=== PATIENT | male | born 1945 | race Caucasian/White ===

== ENCOUNTER 2019-06-14 05:53 | Inpatient (IN) | payer MEDICARE ==
--- NOTE | 2019-06-02 09:11 | HP ---
HISTORY AND PHYSICAL: DATE OF ADMISSION/SURGERY: 06/14/19 DATE OF OFFICE VISIT: 06/01/19 SURGEON: Ashley Caballero MD * (DICTATED BY MERE BRIDGES) PROCEDURE: Right total knee arthroplasty. CHIEF COMPLAINT: Right knee pain. HISTORY OF PRESENT ILLNESS: Mr. Pineda is a 73-year-old gentleman with end- stage osteoarthritis of his right knee. He has failed conservative treatment and elected to proceed with a right total knee arthroplasty. PAST MEDICAL HISTORY: Hypertension, high cholesterol, GERD, history of prostate cancer, and glaucoma. PAST SURGICAL HISTORY: Prostatectomy, right eye surgery, and tonsillectomy. CURRENT MEDICATIONS: 1. Amlodipine/benazepril 5/20 mg daily. 2. Atorvastatin calcium 40 mg a day. 3. Aspirin 325 daily. 4. Calcium carbonate 500 mg daily. 5. Loratadine 10 mg a day. 6. Latanoprost eye drops daily. ALLERGIES: To SULFA, CETIRIZINE. FAMILY HISTORY: Coronary artery disease, stroke, and cancer. SOCIAL HISTORY: He is a 73-year-old gentleman. He lives with his . He does not smoke or use drugs. He drinks 1 to 2 beers a day. REVIEW OF SYSTEMS: A complete 14-point review of systems was reviewed with the patient and is positive for GERD. He denies history of DVT, PE, hepatitis, HIV , or anesthesia problems. PHYSICAL EXAMINATION GENERAL: He is well developed, well nourished, in no acute distress. VITAL SIGNS: He stands 67 inches tall, weighs 173 pounds. His blood pressure is 148/84, his heart rate is 64. HEENT: Normocephalic, atraumatic. NECK: Supple. No palpable lymph nodes. PULMONARY: The lungs are clear to auscultation bilaterally. CARDIO: Regular rate and rhythm. Strong S1 and S2. ABDOMEN: Soft, nontender, nondistended. NEUROLOGICAL: He is alert and oriented x3. MUSCULOSKELETAL: Right lower extremity: The skin is intact. There are no open wounds or abrasions. There is a moderate effusion of the right knee joint. He has some tenderness over the medial and lateral joint line. Range of motion is 5 to 130 degrees of flexion with significant patellofemoral crepitus. He has a 2+ dorsalis pedis pulse. He is able to dorsiflex and plantar flex. He has intact sensation. ASSESSMENT AND PLAN: Mr. Pineda is a 73-year-old gentleman with end-stage osteoarthritis of the right knee. He has failed conservative treatment and elected to proceed with a right total knee arthroplasty. The surgery is scheduled for 06/14/[address] Caballero discussed the risks and benefits of the surgery at today's visit and all of his questions were answered. He will follow up with Dr. Caballero 2 weeks after the surgery. MERE BRIDGES [id number]/[facility] #: [id number] MTDLaurie
[~2019-06-14 05:53] MED LIST: Buffered Lidocaine 1% SYRIN* 1 ML/SYRINGE INTRADERM ONE; Tranexamic Acid 1,000 MG in NS 0.9% 50 ML* (outpatient use) IV SCH
[2019-06-14] MEDS ORDERED: celeCOXIB CAP* 100 MG PO ONE (06:00)
[2019-06-14] MEDS ORDERED: Lactated Ringers 1000 ML Bag* 1,000 ML IV SCH (06:00)
[2019-06-14] MEDS ORDERED: Dexamethasone IV* 4 MG/ML 1 ML (4 MG) IV SLOW PU ONE (06:00)
[2019-06-14] MEDS ORDERED: Famotidine IV* 10 MG/ML 2 ML (20 mg) IV ONE (06:00)
[2019-06-14] MEDS ORDERED: Gabapentin CAP(*) 400 MG PO ONE ×2 (06:00→06:55)
[2019-06-14] MEDS ORDERED: Buffered Lidocaine 1% SYRIN* 1 ML/SYRINGE INTRADERM ONE (06:55)
[2019-06-14] MEDS ORDERED: ceFAZolin 2 GM in NS PREMIX(*) 2 GM/100 ML BAG IVPB ONE (06:55)
[2019-06-14] MEDS ORDERED: Dexamethasone IV* 4 MG/ML 1 ML (4 MG) ONE (06:55)
[2019-06-14] MEDS ORDERED: celeCOXIB CAP* 200 MG ONE (06:55)
[2019-06-14] MEDS ORDERED: Famotidine IV* 10 MG/ML 2 ML (20 mg) ONE (06:55)
[2019-06-14] MEDS ORDERED: ROPIVACAINE 5 MG/ML 30 ML BTL (0.5%) ONE ×3 (06:57→08:57)
[2019-06-14] MEDS ORDERED: Midazolam* 1 MG/ML 2 ML VIAL (2 MG) ONE (07:11)
[2019-06-14] MEDS ORDERED: fentaNYL* 50 MCG/ML 2 ML VIAL (100 MCG VIAL) ONE (07:11)
[2019-06-14] MEDS ORDERED: Lidocaine 2% PF * 5 ML VIAL ONE (07:11)
[2019-06-14] MEDS ORDERED: KETAMINE HCL* 50 MG/ML 10 ML VIAL ONE (08:24)
[2019-06-14] MEDS ORDERED: Midazolam* 1 MG/ML 5 ML VIAL (5 MG) ONE (08:24)
[2019-06-14] MEDS ORDERED: Ondansetron INJ* 2 MG/ML VIAL ONE (08:25)
[2019-06-14] MEDS ORDERED: Propofol* 10 MG/ML 20 ML BTL ONE (08:25)
[2019-06-14] MEDS ORDERED: Bupivacaine 0.5% SDV PF* 30ML VIAL ONE (08:25)
[2019-06-14] MEDS ORDERED: Bupivacaine 0.5%* 50 ML MDV VIAL ONE (09:24)
[2019-06-14] MEDS ORDERED: Cyclobenzaprine TAB* 10 MG PO PRN (14:10)
[2019-06-14] MEDS ORDERED: oxyCODONE/Acetamin 5/325 MG* TAB PO PRN (14:10)
[2019-06-14] MEDS ORDERED: diPHENhydraMINE PO* 25 MG PO PRN (14:10)
[2019-06-14] MEDS ORDERED: oxyCODONE TAB* 5 MG TAB PO PRN (14:10)
[2019-06-14] MEDS ORDERED: diPHENhydraMINE IV* 50 MG/ML 1 ml VIAL (BENADRYL) IV PRN (14:10)
[2019-06-14] MEDS ORDERED: Ondansetron INJ* 2 MG/ML VIAL IV PRN (14:10)
[2019-06-14] MEDS ORDERED: Ondansetron ODT TAB* 4 MG PO PRN (14:10)
[2019-06-14] MEDS ORDERED: Acetaminophen TAB* 325 MG PO PRN (14:10)
[2019-06-14] MEDS ORDERED: Morphine INJ* 2 MG/ML 1 ML SYRINGE (TWO MG - NEW SYRINGE VERSION) IV PRN (14:10)
[2019-06-14] MEDS ORDERED: Magnesium Hydroxide LIQ* 30 ML UDC PO PRN (14:10)
[2019-06-14] MEDS ORDERED: ceFAZolin 1 GM ADVAN(*) 1 GM in NS 0.9% 50 ML* 50 ML IVPB SCH (15:00)
[2019-06-14] MEDS: Lactated Ringers 1000 ML Bag* 1,000 ML IV SCH (15:54)
--- OUTSIDE RECORDS SUMMARY | 2019-06-14 16:38 | XMS REPORT | Continuity of Care Document ---
:1945 External Reference #:[id number] Author Name Ashley Caballero M.D. 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 Medicine Problems Description No Information Available Social History Type Date Description Comments Sex Unknown ETOH Use Currently consumes alcohol 10 drinks/week Tobacco Use Start: Unknown Patient has never smoked Smoking Status Reviewed: 06/01/19 Patient has never smoked Exercise Type/Frequency Exercises regularly Allergies, Adverse Reactions, Alerts Active Allergies Reaction Severity Comments Date Sulfa Antibiotics 01/03/2019 Cetirizine 01/03/2019 Medications Active Medications SIG Qnty Indications Ordering Provider Date Amlodipine Take 1 Capsule By Unknown Besylate/Benazepril Oral Route Every Hydrochloride Day 5-20mg Capsules Atorvastatin Calcium Take 1 Tablet By Unknown 40mg Oral Route Every Tablets Day Aspirin one daily Unknown 325mg Tablets Calcium Carbonate 500 mg once daily Unknown Loratadine once daily Unknown 10mg Capsules Vitamin D one daily Unknown 1000Unit Tablets Famotidine 1 at bedtime prn Unknown 20mg Tablets Latanoprost Instill 1 Drop Unknown 0.005% Solution Into Both Eyes Nightly Immunizations Description No Information Available Vital Signs Date Vital Result Comment 06/01/2019 8:36am Height 67.75 inches 5'7.75" Weight 173.00 lb Heart Rate 63 /min BP Systolic Sitting 148 mmHg BP Diastolic Sitting 84 mmHg Respiratory Rate 16 /min Pain Level 1 O2 % BldC Oximetry 96 % BMI (Body Mass Index) 26.5 kg/m2 05/30/2019 10:28am Height 67.75 inches 5'7.75" Weight 175.00 lb Heart Rate 69 /min BP Systolic Sitting 146 mmHg 160/84 initially BP Diastolic Sitting 84 mmHg 160/84 initially O2 % BldC Oximetry 95 % BMI (Body Mass Index) 26.8 kg/m2 Results Description No Information Available Procedures Date Code Description Status 05/30/2019 80144 EKG Tracing & Interpretation Completed Medical Devices Description No Information Available Encounters Type Date Location Provider Dx Diagnosis Office Visit 01/03/2019 [facility] Ashley Caballero, M25.561 Pain in right 11:00a at [place] knee M25.562 Pain in left knee M17.0 Bilateral primary osteoarthritis of knee Assessments Date Code Description Provider 06/01/2019 M25.561 Pain in right knee Ashley Caballero M.D. 06/01/2019 M17.0 Bilateral primary osteoarthritis of knee Ashley Caballero M.D. 05/30/2019 Z01.818 Encounter for other preprocedural James Nguyen M.D. examination 05/30/2019 M17.0 Bilateral primary osteoarthritis of knee James Nguyen M.D. 05/30/2019 I10 Essential (primary) hypertension James Nguyen M.D. 05/30/2019 E78.00 Pure hypercholesterolemia, unspecified James Nguyen M.D. 05/30/2019 K21.9 Gastro-esophageal reflux disease without James Nguyen M.D. esophagitis 05/30/2019 Z85.46 Personal history of malignant neoplasm of James Nguyen M.D. prostate 01/03/2019 M25.561 Pain in right knee Ashley Caballero M.D. 01/03/2019 M25.562 Pain in left knee Ashley Caballero M.D. 01/03/2019 M17.0 Bilateral primary osteoarthritis of knee Ashley Caballero M.D. Plan of Treatment Future Appointment(s):06/24/2019 8:45 am - Ashley Caballero M.D. at [facility] at Kibizh4011/28/2019 9:00 am - James Nguyen M.D. at [facility] - Ccmob06/14/2019 8:30 am - Ashley Caballero M.D. at [facility] at Tnaisc6210/17/2019 12:50 pm - Rory Farah MD at [facility] [id number] /20/2019 - Ashley Caballero M.D.M25.561 Pain in right kneeFollow up:Follow up: 2 weeks after tacqighR12.0 Bilateral primary osteoarthritis of knee Functional Status Description No Information Available Mental Status Description No Information Available Referrals Description No Information Available
--- OUTSIDE RECORDS SUMMARY | 2019-06-14 16:38 | XMS REPORT | Continuity of Care Document ---
:1945 External Reference #:[id number] Author Name James Nguyen M.D. 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 [phone] Medicine Problems Description No Information Available Social History Type Date Description Comments Sex Unknown ETOH Use Currently consumes alcohol 10 drinks/week Tobacco Use Start: Unknown Patient has never smoked Smoking Status Reviewed: 05/30/19 Patient has never smoked Exercise Type/Frequency Exercises [...] 1 at bedtime prn Unknown 20mg Tablets Immunizations Description No Information Available Vital Signs Date Vital Result Comment 05/30/2019 10:28am Height 67.75 inches 5'7.75" Weight 175.00 lb Heart Rate 69 /min BP Systolic Sitting 160 mmHg BP Diastolic Sitting 84 mmHg O2 % BldC Oximetry 95 % BMI (Body Mass Index) 26.8 kg/m2 01/03/2019 11:18am Height 67.75 inches 5'7.75" Weight 181.00 lb Heart Rate 72 /min BP Systolic 150 mmHg BP Diastolic 80 mmHg Body Temperature 97.9 F BMI (Body Mass Index) 27.7 kg/m2 Results Description No Information Available Procedures Date Code Description Status 05/30/2019 85687 EKG Tracing & Interpretation Completed Medical Devices Description No Information Available Encounters Type Date Location Provider Dx Diagnosis Office Visit 01/03/2019 [facility] Ashley Caballero, M25.561 Pain in right 11:00a at [place] M25.562 Pain in left knee M17.0 Bilateral primary osteoarthritis of knee Assessments Date Code Description Provider 05/30/2019 Z01.818 Encounter for other preprocedural James [...] Ashley Caballero M.D. Plan of Treatment Future Appointment(s):11/28/2019 9:00 am - James [facility]14[facility] 8:30 am - Ashley Caballero M.D. at [facility] at Sxdfvj0906/01/2019 9:00 am - Ashley Caballero M.D. at [facility] at Evnphx9810/17/2019 12:50 pm - Rory Farah MD at [facility] Mnizhuqxcek65 /18/2019 - James Nguyen M.D.Z01.818 Encounter for other preprocedural examinationComments:No contraindications to planned knee surgery.M17.0 Bilateral primary osteoarthritis of kneeComments:R TKA planned per [id number] Essential (primary) hypertensionComments:On Rx; past office BPs 120s-140s per pt. No home BP checks. Resume regular home BPs and call in readings for review.Follow up:6 months or prn after home BPs lxpounriT08.00 Pure hypercholesterolemia, unspecifiedComments:On Rx; recheck mjepltE95.9 Gastro- esophageal reflux disease without esophagitisComments:Stable with prn IyuuzcimztC02.46 Personal history of malignant neoplasm of prostateComments:(+) robotic surgery last year with some residual urinary frequency and occ stress dribbling. PSAs good with urology rechecks Functional Status Description No Information Available Mental Status Description No Information Available Referrals Description No Information Available
[2019-06-14] MEDS ORDERED: Calcium Carbonate CHEW TAB* 500 MG (TUMS) PO SCH (18:00)
[2019-06-14] MEDS ORDERED: Latanoprost 0.005%* 2.5 ml BTL BOTH EYES SCH (18:00)
[2019-06-14] MEDS: oxyCODONE/Acetamin 5/325 MG* TAB PO PRN ×2 (18:22→23:09)
--- NOTE | 2019-06-14 18:36 | CONS ---
CONSULTATION REPORT: DATE OF CONSULT: 06/14/19 SERVICE REQUESTING CONSULTATION: Orthopedic Surgery. REASON FOR CONSULT: Medical co-management. SURGERY: Right total knee arthroplasty. HISTORY OF PRESENT ILLNESS: This is a 73-year-old man with past medical history of hyperlipidemia and hypertension, who failed conservative management for right knee pain and decreased mobility, underwent right total knee arthroplasty with Dr. Caballero today with complication. He was seen postoperatively. He had minimal pain. Denies shortness of breath, nausea, vomiting, lightheadedness, chest pain or discomfort, or dizziness. He had no questions or concerns were discussed. PAST MEDICAL HISTORY: Includes hyperlipidemia; prostate cancer, status post robotic surgery; GERD; glaucoma; hypertension; osteoarthritis. HOME MEDICATIONS: Include: 1. Amlodipine/benazepril 5/20 daily. 2. Atorvastatin 40 mg daily. 3. Aspirin 325 mg daily. 4. Calcium carbonate 500 mg daily. 5. Loratadine 10 mg daily. 6. Latanoprost eye drops daily. ALLERGIES: To SULFA and CETIRIZINE. FAMILY HISTORY: Father with colon cancer, CVA, and hypertension. Mother with CAD, CVA, and PMR. 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 No tobacco. REVIEW OF SYSTEMS: As per HPI. Pain well controlled. PHYSICAL EXAM: Vitals: 120/69, heart rate is 44, respiratory rate of 16, he is 98% on room air, T-max is 98. Sitting up in bed, interactive, in no apparent distress. Oropharynx is clear. He has moist mucous membranes. Sclerae are anicteric. Regular rate and rhythm. He has a soft 2/6 systolic ejection murmur loudest over the right upper sternal border. Lungs are clear to auscultation. His abdomen is soft, nontender, nondistended. Extremities are warm and well perfused. His right knee is wrapped in a cooler. He is alert and oriented x3. His cranial nerves II through XII are intact. He has no apparent anxiety, agitation, or depression. LABORATORY DATA: He has no labs. ASSESSMENT AND PLAN: This is a 73-year-old man status post right total knee arthroplasty with Dr. Caballero, now being consulted for medical co-management. 1. Right total knee arthroplasty. Care per surgical team. They have started the patient on low-dose Eliquis for DVT prophylaxis. Medications for pain have been ordered including Percocet, two different doses of oxycodone for breakthrough, and morphine. The patient indicates he does not want morphine and I am discontinuing at this time. 2. Hypertension. Continue home medications. We will break up his combination of antihypertensive into two agents. 3. Family history of colon cancer. The patient takes aspirin 325 daily. We will hold aspirin at this time. 4. Hyperlipidemia. Continue atorvastatin. 5. Glaucoma. Continue latanoprost. 6. DVT prophylaxis: Low-dose Eliquis per primary team. [id number]/[facility] #: [id number] MTDLaurie
[2019-06-14] MEDS: ceFAZolin 1 GM ADVAN(*) 1 GM in NS 0.9% 50 ML* 50 ML IVPB SCH (19:48)
[2019-06-14] MEDS: Docusate CAP* 100 MG PO SCH (20:46)
[2019-06-14] MEDS: Magnesium Hydroxide LIQ* 30 ML UDC PO SCH (20:47)
--- NOTE | 2019-06-14 21:02 | OP ---
Operative Report - Blank - Operative Report Date of Operation: 06/14/19 Note: LOAN CUNHA 1945 Date of Surgery: 06/14/19 Ashley Caballero MD Toll Gate Tender: Sandra SEVERINO did help throughout the procedure with preparation of the knee, wound retraction, manipulation of the knee, and wound closure. Anesthesiologist: Sandra Rivera MD Anesthesia Type: Spinal Preoperative Diagnosis: Right severe degenerative osteoarthritis of the knee Postoperative Diagnosis: As above Procedure Performed: Right Total Knee Arthroplasty Tourniquet time: 70 minutes Complications: None Specimen: Bone and cartilage from the right knee joint sent to pathology. Hardware Used: Cemented Clark and Nephew total knee hardware was used - For the femur a size 6 narrow right oxinium legion posterior stabilized femoral component, for the tibia a size 5 right aydin II tibial baseplate, for the insert a size 9mm 5-6 posterior stabilized articular polyethylene insert, and for the patella a size 35 3-peg all poly patella. The YellowKorner Robotic Navigation system was used. Brief History/Indication: LOAN CUNHA was known in clinic and had a history of severe right knee pain and swelling. He failed conservative treatment with anti-inflammatories, pain pills, intra-articular injections and physical therapy. He elected to undergo right total knee arthroplasty due to continued pain and decreased quality of life. Radiographs showed severe end stage osteoarthritis of the knee with bone on bone contact. Informed consent was obtained from the patient. He understood the risks of surgery included but were not limited to: bleeding, infection, damage to nearby structures, intraoperative fracture, nerve palsy, failure of the hardware, early loosening, knee stiffness or loss of motion, anesthesia complications, stroke, heart attack , blood clot and . He wished to proceed. He accepted the additional pin site risks associated with the Navio robotic system. Intra-Operative Findings: Intraoperatively the patient was noted to have severe loss of cartilage in all 3 compartments of the knee. Description of the Procedure: LOAN CUNHA was identified in the preanesthesia unit. His right knee was marked as the correct operative side. Informed consent was signed and placed in the chart. The patient was taken to the operating room and placed under anesthesia without complication. A montanez catheter was placed. A tourniquet was placed on the right thigh. The right lower extremity was prepped and draped in the usual sterile fashion. Preoperative time-out was made to correctly identify the patient, side and site. Appropriate intraoperative antibiotics were given within one hour of incision. Tourniquet was inflated. A midline incision was made and carried sharply down to the extensor mechanism. A new 10 blade was used to make a standard medial parapatellar arthrotomy. The patella was subluxed laterally. Electrocautery was used to dissect soft tissue off the superomedial tibia to the midsagittal plane. The knee was flexed up. The anterior horn of the lateral meniscus and the ACL/PCL were sharply incised. The two checkpoint screws and 4 pins were placed without difficulty. The arrays were placed. The YellowKorner robotic system was used to map the anatomy and the hardware size/placement was determined. The YellowKorner robotic henry was used to make the distal femoral cut. The distal femur was sized to a size 6. The size 6 multi-cutting jig was pinned on the distal femur. The oscillating saw was used to make the appropriate 4 chamfer cuts. Next the PCL was completely released. The extramedullary tibial cutting guide was pinned on the proximal tibia and the NetMoviesio angle guide was used to determine the angle of the cut. The oscillating saw was used to make the proximal tibial cut perpendicular to the mechanical axis of the tibia. The bone was carefully removed. The knee was brought out into full extension. The spacer block was placed and had excellent fit with the knee in full extension. The medial and lateral ligaments were well balanced. The flexion and extension gaps were well balanced. The knee was flexed up. Lamina smoke and flame specialist was placed both medially and laterally. Any remaining meniscus was removed with electrocautery. Curved osteotome was used to remove any posterior osteophytes. The tibial tray and drop adithya were placed and confirmed a satisfactory tibial cut. The size 6 right narrow femoral trial was impacted onto the distal femur. This trial had excellent fit and stability. The box for the posterior stabilized implant was prepared using a box cut osteotome and a reamer. Next a tibial tray trial and 9 mm insert trial was placed. The knee was taken through a range of motion and had full extension to 130 degrees of flexion. Patellofemoral tracking was satisfactory. The final Navio checkpoints were entered and the 2 screws/4 pins were removed. The patella was inverted and sized to a size 35. Three peg holes were drilled through the size 35 drill guide. The trial patella was placed and the knee was taken through a range of motion. There was satisfactory patellofemoral tracking. All trials were removed. The tibia was subluxed anteriorly and sized to a size 5. The proximal tibial was prepared with a size 5 keel punch. All bony cut surfaces were irrigated with sterile saline and dried. Final implants were cemented into place starting with the tibia, followed by the femur, and last the patella. A 9 mm insert trial was placed and the knee was brought into full extension. Tourniquet was turned down and the knee was copiously irrigated with sterile saline. Electrocautery was used to obtain meticulous hemostasis. Once the cement had fully cured, the insert trial was removed. Any excess cement was removed from around the hardware and capsule. Final insert chosen was a 9 mm posterior stabilized Aydin II articular insert size 5-6. Stability of the insert was checked and noted to be stable. The extensor mechanism was closed using number 1 vicryls. The rest of the incision was closed in a layered fashion using 0 and 2-0 vicryls. The skin was closed using 3-0 nylon suture. Sterile xeroform, 4x4s and webril were used to cover the incision. Jose Manuel wrap and cold pack were used to cover the dressings. The patients anesthesia was reversed without difficulty. He was taken to the PACU in stable condition. Intended weight-bearing will be as tolerated.
[2019-06-15] MEDS: Lactated Ringers 1000 ML Bag* 1,000 ML IV SCH (01:18)
[2019-06-15] MEDS: ceFAZolin 1 GM ADVAN(*) 1 GM in NS 0.9% 50 ML* 50 ML IVPB SCH ×2 (03:15→11:05)
[2019-06-15 05:40] LABS: Hematocrit 38 % (42-52); Mean Platelet Volume 8.7 fL (7.4-10.4); Platelet Count 199 10^3/uL (150-450)
[2019-06-15 06:03] LABS: BUN/Creatinine Ratio 20.2 (8-20); Calcium 8.8 mg/dL (8.6-10.3); EGFR African American 95.7 (>60); EGFR Non-African American 79.1 (>60); Potassium 4.4 mmol/L (3.5-5.0)
--- NOTE | 2019-06-15 08:23 | PN ---
Progress Note - Progress Note Date of Service: 06/15/19 SOAP: Subjective: []Pt seen and examined at bedside. He feels well and desires DC home this afternoon. Denies CP, SOB, dizziness, nausea. He has no knee pain. Objective: []Gen: NAD, appears well RLE: Right knee dressing CDI, thigh soft, DF/PF intact, DP2+, sensation intact to light touch distally Calves supple and nontender without erythema, edema or palpable cords Assessment: []POD 1 sp RTK Plan: []WBAT PT eliquis 2.5 mg po BID hold aspirin while on eliquis Needs dressing change prior to DC Plan for DC this afternoon Vital Signs Temp 98.4 F 06/15/19 08:08 Pulse 72 06/15/19 08:08 Resp 16 06/15/19 08:08 BP 142/74 06/15/19 08:08 Pulse Ox 96 06/15/19 08:08 Intake & Output 06/14/19 06/15/19 06/15/19 18:59 06:59 18:59 Intake Total 1400 780 Output Total 380 1625 Balance 1020 -845 Weight 170 lb Intake: IV Fluids 1400 LR 1300 NS 100ML, Cefazolin 2G 100 Oral 780 Output: Cruz 300 1625 Residual 80 Cruz 16 Fr 80 Other: Estimated Blood Loss 150 Comment Laboratory Last Values Hgb 13.0 g/dL (14.0-18.0) L 06/15/19 05:16 Hct 38 % (42-52) L 06/15/19 05:16 Plt Count 199 10^3/uL (150-450) 06/15/19 05:16 MPV 8.7 fL (7.4-10.4) 06/15/19 05:16 Sodium 139 mmol/L (135-145) 06/15/19 05:16 Potassium 4.4 mmol/L (3.5-5.0) 06/15/19 05:16 Chloride 106 mmol/L (101-111) 06/15/19 05:16 Carbon Dioxide 28 mmol/L (22-32) 06/15/19 05:16 Anion Gap 5 mmol/L (2-11) 06/15/19 05:16 BUN 19 mg/dL (6-24) 06/15/19 05:16 Creatinine 0.94 mg/dL (0.67-1.17) 06/15/19 05:16 Est GFR ( Amer) 95.7 (>60) 06/15/19 05:16 Est GFR (Non-Af Amer) 79.1 (>60) 06/15/19 05:16 BUN/Creatinine Ratio 20.2 (8-20) H 06/15/19 05:16 Glucose 102 mg/dL (70-100) H 06/15/19 05:16 Calcium 8.8 mg/dL (8.6-10.3) 06/15/19 05:16
[2019-06-15] MEDS ORDERED: Atorvastatin* 40 MG TAB PO SCH (09:00)
[2019-06-15] MEDS ORDERED: Lisinopril TAB* 10 MG PO SCH (09:00)
[2019-06-15] MEDS ORDERED: Vitamin THERAPEUTIC TAB PO SCH (09:00)
[2019-06-15] MEDS ORDERED: amLODIPine TAB* 5 MG PO SCH (09:00)
[2019-06-15] MEDS ORDERED: Apixaban* 2.5 MG TAB PO SCH (09:00)
[2019-06-15] MEDS: oxyCODONE/Acetamin 5/325 MG* TAB PO PRN ×2 (09:14→13:51)
[2019-06-15] MEDS: Docusate CAP* 100 MG PO SCH (09:16)
[2019-06-15] MEDS: Magnesium Hydroxide LIQ* 30 ML UDC PO SCH (09:17)
[2019-06-15 11:41] VITALS: BP 138/68
--- NOTE | 2019-06-15 14:55 | DS ---
Orthopedic Discharge Summary - Discharge Summary Date of Admission:06/14/19 Date of Discharge: 06/15/19 Date of Surgery: 06/14/19 Attending Orthopedic Provider: Dr Caballero Pre-operative Diagnosis: Right knee osteoarthritis Operative Procedure: right total knee replacement Disposition of Patient: home with outpatient PT Condition of Patient: stable History: LOAN CUNHA is a 73 year old M with years of increasingly severe right knee pain. Patient has failed conservative management and has elected to undergo a right total knee replacement Hospital Course: LOAN was admitted to [facility] on 06/14/19. Patient underwent a right total knee replacement without complication followed by a brief recovery in PACU and transfer to the Short Stay Surgical Unit in stable condition. Our hospitalist service, physical therapy also participated in this patients care. Post-op day 1: patient was alert and in no acute distress. Dressing was clean, dry and intact. Operative extremity dorsiflexion and plantarflexion intact, sensation intact to light touch distally, DP2+. Prior to DC: dressing was changed, incision was clean, dry and intact. Patient was deemed to be medically and orthopedically stable for discharge. Physical therapy goals were met. Home Medications Medication Instructions Recorded Confirmed Type Amlodipine Besylate/Benazepril 1 each PO QAM 06/01/19 06/14/19 History Amlodipine-Benazepril 5-20 mg Atorvastatin* [Lipitor 40 MG*] 40 mg PO QAM 06/01/19 06/14/19 History Calcium Carbonate CHEW TAB* [Tums*] 500 mg PO QPM 06/01/19 06/14/19 History Cholecalciferol TAB* [Vitamin D 1,000 unit PO QAM 06/01/19 06/14/19 History TAB*] Famotidine TAB* [Pepcid 20 MG TAB*] 40 mg PO QPM 06/01/19 06/14/19 History Latanoprost 0.005%* [Xalatan 1 drop BOTH EYES QPM 06/01/19 06/14/19 History 0.005%*] Acetaminophen TAB* [Tylenol TAB*] 650 mg PO Q6H PRN tab 06/15/19 Rx Apixaban* [Eliquis*] 2.5 mg PO BID #60 tab 06/15/19 Rx Aspirin TAB* [Aspirin 325 MG TAB*] Hold while on eliquis then resume 06/15/19 Docusate CAP* [Colace Cap*] 100 mg PO BID PRN #90 cap 06/15/19 Rx oxyCODONE/Acetamin 5/325 MG* 1 tab PO Q4H PRN tab MDD 10 06/15/19 Rx [Percocet 5/325 TAB*] oxyCODONE/Acetamin 5/325 MG* 2 tab PO Q4H PRN #70 tab MDD 10 06/15/19 Rx [Percocet 5/325 TAB*] Discharge Instructions following Orthopedic Surgery: Activity: * Weight Bearing as tolerated * Continue physical therapy and occupational therapy exercises as shown * Outpatient physical therapy Wound care: * OK to shower on post-op day 3, no bathing, swimming, or submerging wound. * Use gentle soap, pat dry. Cover with gauze, RACHELLE wrap or tape. Call Orthopedic office for: * Increased drainage * Redness * Increased pain * Fever Go to ER with shortness of breath or chest pain. Diet: * Regular diet * Increase fluids and fiber to prevent constipation. * Continue to use stool softeners, call office if no bowel motion within 48 hours. Medications See Home Medication List in your packet for medications that you should take after discharge. DVT Prophylaxis: Eliquis Dosin.5 mg, 1 tab every 12 hours ( at 9 am and 9 pm) x 30 days. Increases bleeding tendency Pain Control: Percocet Dosin/325 mg 1 tab for moderate pain and 2 tabs for severe pain by mouth every 4 hours as needed for pain. Maximum of 10 tabs per day. Hold for sedation, wean off by spacing out doses as soon as pain allows Please note that Percocet contains Tylenol (acetaminophen). Maximum daily dose of Tylenol is 4000 mg from all sources. Antibiotics are required prior to any dental work. FOLLOW UP: Follow up with [Federico] Within 10-14 days, call for appointment Please call our office with any questions or concerns ([phone]) RX to [facility] [place]
[2019-06-16] MEDS ORDERED: Bisacodyl SUPP* 10 MG SUPP PR PRN (14:10)
== END 2019-06-15 15:45 | disposition home or self-care (01) | DRG 470 ==
LOC: AA 05:53 → SSU 14:10
PROVIDERS: ADMIT Orthopaedic Surgery Adult Reconstructive Orthopaedic Surgery; ATTEND Orthopaedic Surgery Adult Reconstructive Orthopaedic Surgery
PROC: 8E0Y0CZ Robotic Assisted Procedure of Lower Extremity, Open Approach (ICD-10-PCS; 2019-06-14)
PROC: 0SRC069 Replacement of Right Knee Joint with Oxidized Zirconium on Polyethylene Synthetic Substitute, Cemented, Open Approach (ICD-10-PCS; principal; 2019-06-14 07:45)
DX: M17.11 Unilateral primary osteoarthritis, right knee (principal); I10 Essential (primary) hypertension; E78.00 Pure hypercholesterolemia, unspecified; K21.9 Gastro-esophageal reflux disease without esophagitis; M25.761 Osteophyte, right knee; H40.9 Unspecified glaucoma; Z85.46 Personal history of malignant neoplasm of prostate; Z79.82 Long term (current) use of aspirin; Z79.899 Other long term (current) drug therapy; Z88.2 Allergy status to sulfonamides; Z88.8 Allergy status to other drugs, medicaments and biological substances; Z82.49 Family history of ischemic heart disease and other diseases of the circulatory system; Z82.3 Family history of stroke; Z80.0 Family history of malignant neoplasm of digestive organs
CPT/HCPCS: 36415; 80048; 85014; 85018; 85049; A9270-GY; G8978-GP-CK; G8979-GP-CI; J0690; J1100; J2250; J2405; J2704; J2795; J3010; J3490